=== PATIENT | male | born 1985 | race Asian ===

== ENCOUNTER 2018-01-28 22:23 | Emergency (ER) | payer SELFPAY ==
[~2018-01-28] VITALS: Ht 172.7 cm; Wt 79.1 kg
[2018-01-28 22:42] VITALS: BP 125/84
[2018-01-28] MEDS ORDERED: IBUPROFEN 600MG TABLET PO STA (23:23)
== END 2018-01-29 00:56 | disposition left against medical advice (07) ==
LOC: ER 22:23
DX: R07.89 Other chest pain (principal); V49.49XA Driver injured in collision with other motor vehicles in traffic accident, initial encounter; Y93.89 Activity, other specified; Y92.488 Other paved roadways as the place of occurrence of the external cause
CPT/HCPCS: 99283

== ENCOUNTER 2018-01-29 12:08 | Emergency (ER) | payer BC ==
[~2018-01-29] VITALS: Ht 177.8 cm; Wt 80.0 kg
[2018-01-29] MEDS ORDERED: KETOROLAC 60MG/2ML VIAL IM ONE (17:15)
[2018-01-29 18:51] VITALS: BP 142/100
== END 2018-01-29 18:53 | disposition home or self-care (01) ==
LOC: ER 12:08
DX: S20.212A Contusion of left front wall of thorax, initial encounter (principal); M25.512 Pain in left shoulder; V43.52XA Car driver injured in collision with other type car in traffic accident, initial encounter; Y93.89 Activity, other specified; Y92.488 Other paved roadways as the place of occurrence of the external cause
CPT/HCPCS: 71120; 93005; 96372; 99283; J1885